=== PATIENT | female | born 1935 ===

== ENCOUNTER → 2017-05-14 | Outpatient (CLI) | payer MEDICARE ==
[~2017-05-14] MED LIST: AMIODARONE HCL100 MG; FURO40; LOSA25 PO; METO25; RANI150EL; SPIR50; WARF1
[2017-05-14 18:00] LABS: International Normalized Ratio 1.79; Prothrombin Time Results 18.9 Sec (9.7-11.5)
== END ==
LOC: LAB 17:33
PROVIDERS: Nurse Practitioner Adult Health
DX: I25.10 Atherosclerotic heart disease of native coronary artery without angina pectoris (principal)
CPT/HCPCS: 85610

== ENCOUNTER → 2017-06-11 | Outpatient (CLI) | payer MEDICARE ==
[2017-06-11 18:02] LABS: BASOPHILS ABSOLUTE AUTO 0.05 K/mm3 (0.00-0.23); BASOPHILS PERCENT AUTO 1 % (0-2); EOSINOPHILS ABSOLUTE AUTO 0.02 K/mm3 (0.00-0.68); EOSINOPHILS PERCENT AUTO 0 % (0-6); Hematocrit 39.7 % (33.0-51.0); Hemoglobin 12.3 g/dL (11.5-16.0); IMMATURE GRAN ABSOLUTE AUTO 0.02 K/mm3 (0.00-0.10); IMMATURE GRAN PERCENT AUTO 0 % (0-1); LYMPHOCYTES PERCENT AUTO 11 % (21-46); MONOCYTES PERCENT AUTO 8 % (4-13); Mean Corpuscular HGB 28.8 pg (26.0-34.0); Mean Corpuscular Volume 93 fL (80-100); Mean Platelet Volume 12.3 fL (9.1-12.4); NEUTROPHILS ABSOLUTE AUTO 5.34 K/mm3 (1.96-9.15); NEUTROPHILS PERCENT AUTO 81 % (41-73); Platelet Count 233 K/mm3 (150-400); RDW Coefficient Variation 17.4 % (11.7-14.2); RDW Standard Deviation 59.2 fL (35.1-46.3); Red Blood Cell Count 4.27 M/mm3 (3.80-5.20); White Blood Cell Count 6.63 K/mm3 (4.00-11.30)
[2017-06-11 18:17] LABS: International Normalized Ratio 3.13; Prothrombin Time Results 33.7 Sec (9.7-11.5)
[2017-06-11 18:44] LABS: Alanine Aminotransfer (ALT/SGP 33 U/L (12-78); Albumin, Blood 4.1 g/dL (3.4-5.0); Albumin/Globulin Ratio 0.9 (0.8-1.8); Alk Phos 95 U/L (50-136); Anion Gap 7 mmol/L (6-16); Aspartate Aminotrans (AST/SGOT 28 U/L (12-37); Bilirubin, Total 0.8 mg/dL (0.1-1.0); Blood Urea Nitrogen 36 mg/dL (8-24); Bun/Creatinine Ratio 17.8 (12.0-20.0); CHOL/HDL RATIO 4.5; CO2, Blood 30 mmol/L (21-32); Calcium, Blood 9.2 mg/dL (8.5-10.1); Chloride, Blood 102 mmol/L (98-108); Cholesterol 136 mg/dL (50-200); Creatinine, Blood 2.02 mg/dL (0.40-1.00); Free Thyroxine 1.37 ng/dL (0.70-1.60); Globulin, Blood 4.5 g/dL (2.2-4.0); Glomerular Filtration Rate 25 (60-); Glucose, Blood 125 mg/dL (70-99); HDL Cholesterol 30 mg/dL (>39); LDL/HDL RATIO 2.8; Low Density Lipoprotein Chol 85 mg/dL (0-110); Sodium, Blood 139 mmol/L (136-145); Total Protein, Blood 8.6 g/dL (6.4-8.2); Triglycerides 104 mg/dL (30-160); Very Low Density Lipoprot Chol 20 mg/dL (6-32)
== END | disposition home or self-care (01) ==
LOC: LAB SHORT 17:52 → LAB 17:52
PROVIDERS: Nurse Practitioner Adult Health
DX: E11.22 Type 2 diabetes mellitus with diabetic chronic kidney disease (principal); I12.9 Hypertensive chronic kidney disease with stage 1 through stage 4 chronic kidney disease, or unspecified chronic kidney disease; N18.9 Chronic kidney disease, unspecified; E78.5 Hyperlipidemia, unspecified; J45.909 Unspecified asthma, uncomplicated; K21.9 Gastro-esophageal reflux disease without esophagitis; I25.10 Atherosclerotic heart disease of native coronary artery without angina pectoris
CPT/HCPCS: 80053; 80061; 84439; 84443; 85025; 85610

== ENCOUNTER → 2017-07-11 | Outpatient (CLI) | payer MEDICARE ==
[2017-07-11 18:26] LABS: International Normalized Ratio 2.63; Prothrombin Time Results 28.2 Sec (9.7-11.5)
== END ==
LOC: LAB SHORT 14:30 → LAB 14:30
PROVIDERS: Nurse Practitioner Adult Health
DX: I25.10 Atherosclerotic heart disease of native coronary artery without angina pectoris (principal)
CPT/HCPCS: 85610

== ENCOUNTER 2017-07-17 05:03 | Emergency (ER) | payer MEDICARE ==
[~2017-07-17] VITALS: Ht 162.6 cm; Wt 61.7 kg
[2017-07-17] MEDS ORDERED: AMIODARONE HCL100 MG (05:29)
[2017-07-17] MEDS ORDERED: LOSA25 PO (05:29)
[2017-07-17] MEDS ORDERED: SPIR50 (05:30)
[2017-07-17] MEDS ORDERED: METO25 (05:30)
[2017-07-17] MEDS ORDERED: RANI150EL (05:30)
[2017-07-17] MEDS ORDERED: WARF1 (05:30)
[2017-07-17] MEDS ORDERED: FURO40 (05:30)
[2017-07-17 06:29] LABS: International Normalized Ratio 3.17; Prothrombin Time Results 34.2 Sec (9.7-11.5)
[2017-07-17 06:36] LABS: BASOPHILS ABSOLUTE AUTO 0.08 K/mm3 (0.00-0.23); BASOPHILS PERCENT AUTO 1 % (0-2); EOSINOPHILS ABSOLUTE AUTO 0.04 K/mm3 (0.00-0.68); EOSINOPHILS PERCENT AUTO 1 % (0-6); Hematocrit 39.7 % (33.0-51.0); Hemoglobin 12.3 g/dL (11.5-16.0); IMMATURE GRAN ABSOLUTE AUTO 0.03 K/mm3 (0.00-0.10); IMMATURE GRAN PERCENT AUTO 0 % (0-1); LYMPHOCYTES ABSOLUTE AUTO 1.02 K/mm3 (0.84-5.20); LYMPHOCYTES PERCENT AUTO 13 % (21-46); MONOCYTES ABSOLUTE AUTO 0.68 K/mm3 (0.16-1.47); MONOCYTES PERCENT AUTO 9 % (4-13); Mean Corpuscular HGB 28.3 pg (26.0-34.0); Mean Corpuscular Volume 92 fL (80-100); Mean Platelet Volume 11.6 fL (9.1-12.4); NEUTROPHILS PERCENT AUTO 77 % (41-73); Platelet Count 211 K/mm3 (150-400); RDW Coefficient Variation 17.2 % (11.7-14.2); RDW Standard Deviation 57.7 fL (35.1-46.3); Red Blood Cell Count 4.34 M/mm3 (3.80-5.20); White Blood Cell Count 7.95 K/mm3 (4.00-11.30)
== END 2017-07-17 07:24 | disposition home or self-care (01) ==
LOC: ER 05:03
PROVIDERS: Emergency Medicine
DX: R04.0 Epistaxis (principal); I25.10 Atherosclerotic heart disease of native coronary artery without angina pectoris; R79.1 Abnormal coagulation profile; Z79.899 Other long term (current) drug therapy; Z79.01 Long term (current) use of anticoagulants; I25.2 Old myocardial infarction; I48.91 Unspecified atrial fibrillation; Z87.891 Personal history of nicotine dependence
CPT/HCPCS: 30905; 36415; 85025; 85610; 99283

== ENCOUNTER → 2017-08-05 | Outpatient (CLI) | payer MEDICARE ==
[2017-08-06 14:10] LABS: Performing Lab VAMCL; Test Name PT
== END | disposition home or self-care (01) ==
LOC: LAB SHORT 17:26 → LAB 17:26
PROVIDERS: Nurse Practitioner Adult Health
DX: I25.10 Atherosclerotic heart disease of native coronary artery without angina pectoris (principal)
CPT/HCPCS: 85610

== ENCOUNTER → 2017-10-01 | Outpatient (CLI) | payer MEDICARE ==
[2017-10-01 18:12] LABS: International Normalized Ratio 3.79; Prothrombin Time Results 36.2 Sec (9.7-11.5)
== END ==
LOC: LAB SHORT 09:57 → LAB 09:57
PROVIDERS: Nurse Practitioner Adult Health
DX: I25.10 Atherosclerotic heart disease of native coronary artery without angina pectoris (principal)
CPT/HCPCS: 85610

== ENCOUNTER → 2017-10-17 | Outpatient (CLI) | payer MEDICARE ==
[2017-10-17 18:31] LABS: Prothrombin Time Results 46.4 Sec (9.7-11.5)
[2017-10-17 18:43] LABS: International Normalized Ratio 4.93
== END ==
LOC: LAB SHORT 17:42 → LAB 17:42
PROVIDERS: Nurse Practitioner Adult Health
DX: I25.10 Atherosclerotic heart disease of native coronary artery without angina pectoris (principal)
CPT/HCPCS: 85610

== ENCOUNTER → 2017-10-21 | Outpatient (CLI) | payer MEDICARE ==
[2017-10-21 18:01] LABS: International Normalized Ratio 2.08; Prothrombin Time Results 20.6 Sec (9.7-11.5)
== END ==
LOC: LAB 09:15 → LAB SHORT 09:15
PROVIDERS: Nurse Practitioner Adult Health
DX: I25.10 Atherosclerotic heart disease of native coronary artery without angina pectoris (principal)
CPT/HCPCS: 85610

== ENCOUNTER 2018-06-23 23:54 | Inpatient (IN) | payer MEDICARE ==
[~2018-06-23] VITALS: Ht 152.4 cm; Wt 66.4 kg
[~2018-06-23 23:54] MED LIST changes: -METO25; +METO25 PO; -RANI150EL; +RANI150EL PO; -SPIR50; +SPIR50 PO; -WARF1; +WARF1 PO
[2018-06-24 01:12] LABS: BASOPHILS ABSOLUTE AUTO 0.07 K/mm3 (0.00-0.23); BASOPHILS PERCENT AUTO 1 % (0-2); EOSINOPHILS ABSOLUTE AUTO 0.08 K/mm3 (0.00-0.68); EOSINOPHILS PERCENT AUTO 1 % (0-6); Hematocrit 45.2 % (33.0-51.0); Hemoglobin 14.3 g/dL (11.5-16.0); IMMATURE GRAN ABSOLUTE AUTO 0.07 K/mm3 (0.00-0.10); IMMATURE GRAN PERCENT AUTO 1 % (0-1); LYMPHOCYTES ABSOLUTE AUTO 0.86 K/mm3 (0.84-5.20); LYMPHOCYTES PERCENT AUTO 11 % (21-46); MONOCYTES ABSOLUTE AUTO 0.69 K/mm3 (0.16-1.47); MONOCYTES PERCENT AUTO 9 % (4-13); Mean Corpuscular HGB 29.7 pg (26.0-34.0); Mean Corpuscular HGB Conc 31.6 g/dL (31.5-36.5); Mean Corpuscular Volume 94 fL (80-100); Mean Platelet Volume 12.5 fL (9.1-12.4); NEUTROPHILS ABSOLUTE AUTO 6.05 K/mm3 (1.96-9.15); NEUTROPHILS PERCENT AUTO 77 % (41-73); Platelet Count 181 K/mm3 (150-400); RDW Coefficient Variation 15.5 % (11.7-14.2); RDW Standard Deviation 53.5 fL (35.1-46.3); Red Blood Cell Count 4.82 M/mm3 (3.80-5.20); White Blood Cell Count 7.82 K/mm3 (4.00-11.30)
[2018-06-24 01:24] LABS: Albumin, Blood 4.1 g/dL (3.4-5.0); Albumin/Globulin Ratio 0.9 (0.8-1.8); Bun/Creatinine Ratio 19.5 (12.0-20.0); Calcium, Blood 8.8 mg/dL (8.5-10.1); Creatinine, Blood 2.26 mg/dL (0.40-1.00); Globulin, Blood 4.4 g/dL (2.2-4.0); Potassium, Blood 4.9 mmol/L (3.5-5.5); Total Protein, Blood 8.5 g/dL (6.4-8.2)
[2018-06-24 02:07] LABS: International Normalized Ratio 1.77; Prothrombin Time Results 17.8 Sec (9.7-11.5)
[2018-06-24] MEDS ORDERED: CHOL10002 (03:04)
[2018-06-24] MEDS ORDERED: ACET325 PO (03:04)
--- NOTE | 2018-06-24 05:33 | NUR ---
PT NEW ADMIT THIS AM FOR RIGHT HIP FX. PT VSS SINCE ARRIVING TO FLOOR. HR APCED 60'S PER TELE MONITOR, 2LO2 NC [address] PER BASELINE. PT DECLINED NEED FOR PAIN MEDS, REPOSITIONED FOR COMFORT. PT NPO PER ORDERS. ORTHO CONSULT CALLED IN TO [facility]. CALL LIGHT IN REACH, WILL CONT TO MONITOR UNTIL REP GIVEN TO ONCOMING RN.
[2018-06-24 11:09] LABS: Hematocrit 43.2 % (33.0-51.0); Hemoglobin 13.5 g/dL (11.5-16.0); Mean Corpuscular HGB 29.7 pg (26.0-34.0); Mean Corpuscular HGB Conc 31.3 g/dL (31.5-36.5); Mean Corpuscular Volume 95 fL (80-100); Platelet Count 153 K/mm3 (150-400); RDW Coefficient Variation 15.8 % (11.7-14.2); RDW Standard Deviation 55.5 fL (35.1-46.3); Red Blood Cell Count 4.54 M/mm3 (3.80-5.20); White Blood Cell Count 8.82 K/mm3 (4.00-11.30)
[2018-06-24 11:39] LABS: Albumin, Blood 3.6 g/dL (3.4-5.0); Albumin/Globulin Ratio 0.9 (0.8-1.8); Bilirubin, Total 1.4 mg/dL (0.1-1.0); Bun/Creatinine Ratio 20.1 (12.0-20.0); Calcium, Blood 8.4 mg/dL (8.5-10.1); Creatinine, Blood 2.04 mg/dL (0.40-1.00); Globulin, Blood 3.8 g/dL (2.2-4.0); Potassium, Blood 4.8 mmol/L (3.5-5.5); Total Protein, Blood 7.4 g/dL (6.4-8.2)
[2018-06-24 11:42] LABS: International Normalized Ratio 1.76; Prothrombin Time Results 17.7 Sec (9.7-11.5)
--- NOTE | 2018-06-24 14:31 | NUR ---
1100- rcvd report from previous RN Marisol, pt resting in bed, bed in lowest position, call light within reach, denies need for pain medication 1145- dr escalona call with orders for this RN to request hospitalist speak to pt about surgical intervention, pt's wish to have surgery in [place] r/t cardiac camera control operator there. this RN called Joao 1230- Dr Polk returned call, requests this RN speak with family and have them contact receiving specialist to assist them to secure an accepting hospitalist/orethopedist in [place]. This RN spoke with family, clincal director Tami. 1300-spoke with Dr Escalona to update him. VIVI Valerio and Dr Escalona spoke with family, informed them of the process if family wishes to obtain transfer/accepting physician. family will contact pt's receiving specialist in [place]. this RN will recheck and monitor
--- NOTE | 2018-06-24 18:23 | NUR ---
1740- phoned update to dr davidson following phone conversation with office of Dr Garber in [place], pt's school services officer. dr Garber recommends the orthopedist here at [facility] [place] speak with the orthopedist in [place] to transfer if medically necessary. 1800- dr davidson came to speak with pt re: surgical interventions
--- NOTE | 2018-06-24 19:42 | NUR ---
shift summary: vss, no acute changes, heart remained paced at approx 60 bpm per catheterization laboratory technician on recheck. pt tolerated PO intake for lunch and dinner, nauseous no vomiting after dinner, medicated per apr. pt states pain controlled to her expectation and that she is able to rest following analgesia per mar. pt's family with pt t/o shift. Dr Polk rounded on pt and discussed surgical intervention and plan extensively with pt. see note. pt tolerated bed león for urine output of >350 ml this shift. fluids currently running and pt encouraged to take PO intake. no BM this shift. affect limb with rotated toes our positioned on pillow, repositions per pt's request
--- NOTE | 2018-06-24 21:26 | NUR ---
Agreed for care by executive director of nursing on 06/25/18
[2018-06-25 05:18] LABS: BASOPHILS ABSOLUTE AUTO 0.06 K/mm3 (0.00-0.23); BASOPHILS PERCENT AUTO 1 % (0-2); EOSINOPHILS ABSOLUTE AUTO 0.09 K/mm3 (0.00-0.68); EOSINOPHILS PERCENT AUTO 1 % (0-6); Hematocrit 43.3 % (33.0-51.0); Hemoglobin 13.5 g/dL (11.5-16.0); IMMATURE GRAN ABSOLUTE AUTO 0.05 K/mm3 (0.00-0.10); IMMATURE GRAN PERCENT AUTO 1 % (0-1); LYMPHOCYTES ABSOLUTE AUTO 0.94 K/mm3 (0.84-5.20); LYMPHOCYTES PERCENT AUTO 10 % (21-46); MONOCYTES ABSOLUTE AUTO 1.18 K/mm3 (0.16-1.47); MONOCYTES PERCENT AUTO 12 % (4-13); Mean Corpuscular HGB 29.9 pg (26.0-34.0); Mean Corpuscular HGB Conc 31.2 g/dL (31.5-36.5); Mean Corpuscular Volume 96 fL (80-100); NEUTROPHILS ABSOLUTE AUTO 7.49 K/mm3 (1.96-9.15); NEUTROPHILS PERCENT AUTO 76 % (41-73); Platelet Count 157 K/mm3 (150-400); RDW Coefficient Variation 15.6 % (11.7-14.2); RDW Standard Deviation 55.4 fL (35.1-46.3); Red Blood Cell Count 4.52 M/mm3 (3.80-5.20); White Blood Cell Count 9.81 K/mm3 (4.00-11.30)
[2018-06-25 05:32] LABS: International Normalized Ratio 2.05; Prothrombin Time Results 20.4 Sec (9.7-11.5)
[2018-06-25 05:40] LABS: Calcium, Blood 8.4 mg/dL (8.5-10.1); Creatinine, Blood 2.05 mg/dL (0.40-1.00); Potassium, Blood 4.7 mmol/L (3.5-5.5)
--- NOTE | 2018-06-25 06:27 | NUR ---
LYING ON HER RIGHT SIDE FACING THE DOOR WITH EYES CLOSED. DENIES FURTHER NEEDS OR WANTS AT THIS TIME. NO CHANGES SINCE START OF SHIFT. SAFETY MEASURES IN PLACE. WILL GIVE HAND OFF TO ONCOMING SHFIT USING SBAR.
--- NOTE | 2018-06-25 08:41 | NUR ---
DR ASCENCIO HERE, REPORTS TALKING WITH DR DENNEY THIS AM.
--- NOTE | 2018-06-25 12:40 | NUR ---
MEPILEX PLACED TO PT'S BOTTOM EARLIER TODAY WITH ASSIST FROM FEMALE ELECTRICIAN ELEVATOR MAINTENANCE.
--- NOTE | 2018-06-25 15:33 | NUR ---
CARDIOLOGY HERE TO SEE PT. FAMILY PRESENT.
--- NOTE | 2018-06-25 19:44 | NUR ---
SHIFT SUMMARY PT EATING AND DRINKING. PT TO BE NPO AFTER MIDNIGHT. PT BEEN REPOSITIONED MULT TIMES TODAY. PT FAMILY IN AND OUT OF ROOM. PT REPORTED EARLIER ABLE TO GIVE INFORMATION TO SON'S OVER PHONE, BARBARA OR GLENNA. PT BEEN SEEN BY EFM DR, CARDIOLOGY DR, RESPIRATORY DR AND ORTHO DR TODAY. PT GIVEN PO VIT K TODAY. PT VOIDING USING BEDPAN. PT PASSING GAS. PT HAS TELE IN PLACE. PT HAS MEPILEX IN PLACE TO BOTTOM.
[2018-06-26 05:14] LABS: BASOPHILS ABSOLUTE AUTO 0.05 K/mm3 (0.00-0.23); BASOPHILS PERCENT AUTO 1 % (0-2); EOSINOPHILS ABSOLUTE AUTO 0.23 K/mm3 (0.00-0.68); EOSINOPHILS PERCENT AUTO 3 % (0-6); Hematocrit 41.4 % (33.0-51.0); IMMATURE GRAN ABSOLUTE AUTO 0.03 K/mm3 (0.00-0.10); IMMATURE GRAN PERCENT AUTO 0 % (0-1); LYMPHOCYTES ABSOLUTE AUTO 0.72 K/mm3 (0.84-5.20); LYMPHOCYTES PERCENT AUTO 8 % (21-46); MONOCYTES ABSOLUTE AUTO 1.15 K/mm3 (0.16-1.47); MONOCYTES PERCENT AUTO 13 % (4-13); Mean Corpuscular HGB 29.8 pg (26.0-34.0); Mean Corpuscular HGB Conc 31.4 g/dL (31.5-36.5); Mean Corpuscular Volume 95 fL (80-100); Mean Platelet Volume 12.2 fL (9.1-12.4); NEUTROPHILS ABSOLUTE AUTO 6.89 K/mm3 (1.96-9.15); NEUTROPHILS PERCENT AUTO 76 % (41-73); Platelet Count 157 K/mm3 (150-400); RDW Coefficient Variation 15.4 % (11.7-14.2); Red Blood Cell Count 4.36 M/mm3 (3.80-5.20); White Blood Cell Count 9.07 K/mm3 (4.00-11.30)
[2018-06-26 05:27] LABS: International Normalized Ratio 1.85; Prothrombin Time Results 18.5 Sec (9.7-11.5)
--- NOTE | 2018-06-26 05:27 | NUR ---
SHIFT SUMMARY PT A&O X4 T/O SHIFT. RLE COOL, DRY AND PINK. RLE ELEVATED; PT REPOSITIONED TOLERATED. PT EDUCATION ON NEED TO REPOSITION ABOUT Q2 HRS TO PREVENT PRESSURE WOUNDS. PT DENIES N/T IN EXT. PAIN IN RLE MANAGED PER EMAR. PT ASSISTED WITH BEDPAN PRN. SIDE RAILS FOR SAFETY. CALL LIGHT IN REACH; PT DEMONSTRATES USE. 2L O2 VIA NC AT PER PT BASELINE. TELEMETRY IN PLACE; PACED AT 60 PER REGION MANAGER. WCTM UNTIL REPORT TO DAY SHIFT RN. NPO AFTER MIDNIGHT; ORAL SWABS AT BEDSIDE.
[2018-06-26 05:30] LABS: Bun/Creatinine Ratio 20.2 (12.0-20.0); Calcium, Blood 8.6 mg/dL (8.5-10.1); Creatinine, Blood 2.08 mg/dL (0.40-1.00)
--- NOTE | 2018-06-26 08:48 | NUR ---
DR ASCENCIO HERE TO SEE PT.
--- NOTE | 2018-06-26 10:15 | NUR ---
PT REPOSITIONED PER PT REQ. PT REPORTS MORE COMF. FAMILY PRESENT.
[2018-06-26 11:55] LABS: International Normalized Ratio 1.58; Prothrombin Time Results 16.1 Sec (9.7-11.5)
--- NOTE | 2018-06-26 13:49 | NUR ---
DR FIELDS HERE TO SEE PT. DISCUSSED PT'S LABS, STATUS. FAMILY PRESENT.
--- NOTE | 2018-06-26 16:55 | NUR ---
PT REPORTS "GAS BUILD UP", PT REQ TUMS. DR NOTIFIED. SEE ORDER.
--- NOTE | 2018-06-26 19:49 | NUR ---
SHIFT SUMMARY PT DID NOT HAVE PROCEDURE TODAY, INR CONT TO BE ELEVATED EVEN AFTER VIT K GIVEN EARLIER THIS AM. DR FIELDS IN THIS AFTERNOON TO SEE PT. FAMILY WAS PRESENT. PT EATING AND DRINKING, VOIDING. PT BEEN REPOSTIONED MULT TIMES, BLE ELEVATED WITH PILLOWS. NO SORES TO HEEL, MEPILEX IN PLACE TO BOTTOM. PT BEEN ASSISTED WITH ADL'S PRN AND MED FOR PAIN PRN WELL SHIFTED IN BED MULT TIMES TODAY PER PT REQ. FAMILY IN/OUT OF ROOM. PT USING CALL LIGHT APPR.
--- NOTE | 2018-06-27 04:21 | NUR ---
SHIFT SUMMARY: PT A&O X4, VS WNL. PT NPO FOR POSSIBLE SURGERY TODAY DEPENDING ON INR. USING BEDPAN PRN. URINE VERY CONCENTRATED. SECOND BAG OF FLUIDS INFUSING (2 TO BE GIVEN TOTAL). REPOSITIONED FREQ. PAIN MANAGED WITH 25 MCG OF FENT. PT C/O FEELING "BLOATED". GIVEN SCHED ZANTAC WITH MILD IMPROVEMENT W/ SX. PT VENTRICULAR PACED AT RATE OF 60 PER CASE OPERATOR.
[2018-06-27 04:41] LABS: BASOPHILS ABSOLUTE AUTO 0.04 K/mm3 (0.00-0.23); BASOPHILS PERCENT AUTO 0 % (0-2); EOSINOPHILS ABSOLUTE AUTO 0.13 K/mm3 (0.00-0.68); EOSINOPHILS PERCENT AUTO 1 % (0-6); Hematocrit 42.5 % (33.0-51.0); Hemoglobin 13.5 g/dL (11.5-16.0); IMMATURE GRAN ABSOLUTE AUTO 0.05 K/mm3 (0.00-0.10); IMMATURE GRAN PERCENT AUTO 1 % (0-1); LYMPHOCYTES ABSOLUTE AUTO 0.85 K/mm3 (0.84-5.20); LYMPHOCYTES PERCENT AUTO 9 % (21-46); MONOCYTES ABSOLUTE AUTO 1.12 K/mm3 (0.16-1.47); MONOCYTES PERCENT AUTO 11 % (4-13); Mean Corpuscular HGB 29.5 pg (26.0-34.0); Mean Corpuscular HGB Conc 31.8 g/dL (31.5-36.5); Mean Corpuscular Volume 93 fL (80-100); Mean Platelet Volume 11.9 fL (9.1-12.4); NEUTROPHILS ABSOLUTE AUTO 7.77 K/mm3 (1.96-9.15); NEUTROPHILS PERCENT AUTO 78 % (41-73); Platelet Count 171 K/mm3 (150-400); RDW Coefficient Variation 15.6 % (11.7-14.2); RDW Standard Deviation 52.8 fL (35.1-46.3); Red Blood Cell Count 4.57 M/mm3 (3.80-5.20); White Blood Cell Count 9.96 K/mm3 (4.00-11.30)
[2018-06-27 04:53] LABS: International Normalized Ratio 1.4; Prothrombin Time Results 14.4 Sec (9.7-11.5)
[2018-06-27 05:00] LABS: Calcium, Blood 8.9 mg/dL (8.5-10.1); Creatinine, Blood 2.08 mg/dL (0.40-1.00); Potassium, Blood 5.5 mmol/L (3.5-5.5)
[2018-06-27 11:49] LABS: International Normalized Ratio 1.36
--- NOTE | 2018-06-27 11:50 | NUR ---
PT LEFT ROOM TO GO TO [facility]/OR
--- NOTE | 2018-06-27 16:27 | NUR ---
ASSUMED CARE PT. ARRIVES FROM DAY SURGERY AT THIS TIME. PT. DROWSY HOWEVER OPENING EYES AND ATTEMPTING TO PULL AT BIPAP MASK. PT. AC 08/08, 50%. PT. VSS UPON ARRIVAL. SECOND DOSE OF TRANEXAMIC ACID INFUSING. PT. SHAKES HEAD NO TO PAIN. ICE PACK PLACED TO RIGHT HIP UPON ARRIVAL, PT. DRESSING TO RIGHT HIP C/D/I. SCDS IN PLACE. PT. HAS SEBASTIAN DRAINING TO GRAVITY. NADN. CALL LIGHT IN REACH
--- NOTE | 2018-06-27 17:46 | NUR ---
PT REACHING TO REMOVE BIPAP. PT. PLACED ON 3LNC AT THIS TIME. PT. ALERT AND ORIENTED. PT. DENIES PAIN AT THIS TIME. ORAL CARE DONE AND PT PROVIDED WITH ICE WATER AT BEDSIDE. PT VSS REMAIN STABLE. CALL LIGHT IN REACH.
--- NOTE | 2018-06-27 18:41 | NUR ---
SHIFT SUMMARY PT. ALERT AND ORIENTED. CURRENTLY ON NC AT 3L AT 98%. PT TOLERATING WATER AND ICE CHIPS WELL. PT. CONTINUES TO DENY PAIN AT THIS TIME.VSS REPORT TO ONCOMING RN
--- NOTE | 2018-06-27 19:53 | NUR ---
PM NOTE. ASSUMED CARE OF PT APROX 1900, PT IS A&Ox4 S/P HIP SURGERY. PT'S VS HAVE BEEN STABLE SHE IS CURRENTLY ON 1L NC AT 96%. HIP DRESSING IS C/D/I. PT DENIES ANY PAIN AT THIS TIME. SEBASTIAN IS INTACT DRAINING CLEAR YELLOW URINE. CALL LIGHT IN REACH, BED IS LOCKED AND LOW WILL CONTINUE TO MONITOR.
--- NOTE | 2018-06-27 21:30 | NUR ---
TRANSFER POD #0 PT TRANSFERED TO ROOM 214 FROM ICU 4. PT IS AWAKE, ALERT AND ORIENTED. VSS, RESP UNLABORED, O2 VIA NC @ 1.5 L. AUQUACEL DRSG TO RIGHT THIGH C/D/I, CIRC WNL. POLAR PACK, SCD'S & TEDS ARE IN PLACE. PT IS TOLERATING PO INTAKE. PT DENIES PAIN AT THIS TIME. FAMILY IS AT THE BEDSIDE. CALL LIGHT IN REACH.
[2018-06-28 04:21] LABS: International Normalized Ratio 1.42; Prothrombin Time Results 14.6 Sec (9.7-11.5)
[2018-06-28 08:20] LABS: BASOPHILS ABSOLUTE AUTO 0.01 K/mm3 (0.00-0.23); BASOPHILS PERCENT AUTO 0 % (0-2); EOSINOPHILS PERCENT AUTO 0 % (0-6); Hematocrit 39.6 % (33.0-51.0); Hemoglobin 12.2 g/dL (11.5-16.0); IMMATURE GRAN ABSOLUTE AUTO 0.05 K/mm3 (0.00-0.10); IMMATURE GRAN PERCENT AUTO 1 % (0-1); LYMPHOCYTES ABSOLUTE AUTO 0.25 K/mm3 (0.84-5.20); LYMPHOCYTES PERCENT AUTO 3 % (21-46); MONOCYTES ABSOLUTE AUTO 0.79 K/mm3 (0.16-1.47); MONOCYTES PERCENT AUTO 8 % (4-13); Mean Corpuscular HGB 29.2 pg (26.0-34.0); Mean Corpuscular HGB Conc 30.8 g/dL (31.5-36.5); Mean Corpuscular Volume 95 fL (80-100); Mean Platelet Volume 12.1 fL (9.1-12.4); NEUTROPHILS ABSOLUTE AUTO 9.02 K/mm3 (1.96-9.15); NEUTROPHILS PERCENT AUTO 89 % (41-73); Platelet Count 175 K/mm3 (150-400); RDW Coefficient Variation 15.4 % (11.7-14.2); RDW Standard Deviation 52.4 fL (35.1-46.3); Red Blood Cell Count 4.18 M/mm3 (3.80-5.20); White Blood Cell Count 10.12 K/mm3 (4.00-11.30)
[2018-06-28 08:40] LABS: Bun/Creatinine Ratio 26.9 (12.0-20.0); Calcium, Blood 8.5 mg/dL (8.5-10.1); Creatinine, Blood 2.12 mg/dL (0.40-1.00)
[2018-06-28 14:12] LABS: Bun/Creatinine Ratio 26.9 (12.0-20.0); Calcium, Blood 8.5 mg/dL (8.5-10.1); Creatinine, Blood 2.27 mg/dL (0.40-1.00); Potassium, Blood 6.2 mmol/L (3.5-5.5)
--- NOTE | 2018-06-28 14:48 | NUR ---
DISCHARGE PT AND SPOUSE PROVIDED WITH WRITTEN AND VERBAL DISCHARGE INSTRUCTIONS; THEY REPORTED UNDERSTANDING AFTER QUESTIONS WERE ANSWERED. PT REPORTED UNDERSTANDING HOW TO CARE FOR HER JERROD DRAIN. PT ESCORTED OUT BY JANET VARGAS IN W/C.
[2018-06-28 18:03] LABS: Bun/Creatinine Ratio 27.3 (12.0-20.0); Calcium, Blood 8.2 mg/dL (8.5-10.1); Creatinine, Blood 2.16 mg/dL (0.40-1.00); Potassium, Blood 5.4 mmol/L (3.5-5.5)
--- NOTE | 2018-06-28 19:32 | NUR ---
SHIFT SUMMARY PT HAS DENIED PAIN THIS SHIFT. SHE IS A 1 ASSIST WHEN OOB. VSS. REPORT GIVEN TO BIBIANA TRINIDAD.
[2018-06-29 04:31] LABS: BASOPHILS ABSOLUTE AUTO 0.01 K/mm3 (0.00-0.23); BASOPHILS PERCENT AUTO 0 % (0-2); EOSINOPHILS ABSOLUTE AUTO 0.02 K/mm3 (0.00-0.68); EOSINOPHILS PERCENT AUTO 0 % (0-6); Hematocrit 37.5 % (33.0-51.0); IMMATURE GRAN ABSOLUTE AUTO 0.05 K/mm3 (0.00-0.10); IMMATURE GRAN PERCENT AUTO 1 % (0-1); LYMPHOCYTES ABSOLUTE AUTO 0.55 K/mm3 (0.84-5.20); LYMPHOCYTES PERCENT AUTO 5 % (21-46); MONOCYTES ABSOLUTE AUTO 1.15 K/mm3 (0.16-1.47); MONOCYTES PERCENT AUTO 11 % (4-13); Mean Corpuscular HGB 29.6 pg (26.0-34.0); Mean Platelet Volume 11.2 fL (9.1-12.4); NEUTROPHILS ABSOLUTE AUTO 8.75 K/mm3 (1.96-9.15); NEUTROPHILS PERCENT AUTO 83 % (41-73); Platelet Count 185 K/mm3 (150-400); RDW Coefficient Variation 15.6 % (11.7-14.2); RDW Standard Deviation 51.4 fL (35.1-46.3); Red Blood Cell Count 4.06 M/mm3 (3.80-5.20); White Blood Cell Count 10.53 K/mm3 (4.00-11.30)
[2018-06-29 04:34] LABS: Hematocrit 37.4 % (33.0-51.0); Hemoglobin 11.9 g/dL (11.5-16.0)
[2018-06-29 04:37] LABS: Mean Corpuscular Volume 92 fL (80-100)
[2018-06-29 04:46] LABS: International Normalized Ratio 1.4; Prothrombin Time Results 14.4 Sec (9.7-11.5)
[2018-06-29 04:50] LABS: Albumin, Blood 3.2 g/dL (3.4-5.0); Anion Gap 9 mmol/L (6-16); Blood Urea Nitrogen 63 mg/dL (8-24); Bun/Creatinine Ratio 28.5 (12.0-20.0); CO2, Blood 25 mmol/L (21-32); Calcium, Blood 8.4 mg/dL (8.5-10.1); Chloride, Blood 101 mmol/L (98-108); Creatinine, Blood 2.21 mg/dL (0.40-1.00); Glomerular Filtration Rate 23 (60-); Glucose, Blood 149 mg/dL (70-99); Magnesium, Blood 2.4 mg/dL (1.6-2.4); Phosphorus, Blood 4.7 mg/dL (2.5-4.9); Potassium, Blood 4.9 mmol/L (3.5-5.5); Sodium, Blood 135 mmol/L (136-145)
--- NOTE | 2018-06-29 15:27 | NUR ---
BLADDER SCAN SHOWED 330ML IN THE BLADDER. PT ATTEMPTED TO VOID AND WAS UNABLE. SHE DECLINED A STRAIGHT CATH AND STATED SHE WOULD TELL STAFF WHEN SHE WANTS TO TRY TO VOID AGAIN.
--- NOTE | 2018-06-29 18:03 | NUR ---
SHIFT SUMMARY PAIN HAS BEEN MANAGED WITH NORCO THIS SHIFT. SHE IS A 2 PERSON ASSIST WITH GAIT BELT AND WALKER. PT HAS BEEN ABLE TO VOID SINCE CATHETER WAS REMOVED. VSS. WILL MONITOR UNTIL REPORT TO ONCOMING RN.
[2018-06-30 04:32] LABS: Hematocrit 38.5 % (33.0-51.0); Hemoglobin 11.9 g/dL (11.5-16.0)
[2018-06-30 04:45] LABS: International Normalized Ratio 1.35; Prothrombin Time Results 13.9 Sec (9.7-11.5)
[2018-06-30 04:52] LABS: Albumin, Blood 3.1 g/dL (3.4-5.0); Anion Gap 8 mmol/L (6-16); Blood Urea Nitrogen 65 mg/dL (8-24); Bun/Creatinine Ratio 29.8 (12.0-20.0); CO2, Blood 28 mmol/L (21-32); Calcium, Blood 8.5 mg/dL (8.5-10.1); Chloride, Blood 101 mmol/L (98-108); Creatinine, Blood 2.18 mg/dL (0.40-1.00); Glomerular Filtration Rate 23 (60-); Glucose, Blood 124 mg/dL (70-99); Magnesium, Blood 2.4 mg/dL (1.6-2.4); Phosphorus, Blood 4.3 mg/dL (2.5-4.9); Potassium, Blood 4.4 mmol/L (3.5-5.5); Sodium, Blood 137 mmol/L (136-145)
--- NOTE | 2018-06-30 06:17 | NUR ---
SHIFT SUMMARY PT IS POD 3 RIGHT HIP REPAIR. PT IS A 2 ASSIST UP TO CHAIR W/ FWW AND GB. SHE IS A&O, ABLE TO MAKE NEEDS KNOWN. TELE WAS PACED OVERNIGHT. 1L VIA NC, MAINTAINING SATS AT REST. PT HAS FOLLOWED HER FLUID RESTRICTION WELL. DR. SANCHEZ SAW HER THIS MORNING. PT MEDICATED WITH 1 NORCO THIS AM FOR HIP PAIN, OTHERWISE COMFORTABLE T/O THE NIGHT. PT IS A&O, ABLE TO MAKE NEEDS KNOWN. WILL CTM UNTIL PASS TO NEXT SHIFT.
--- NOTE | 2018-06-30 13:22 | NUR ---
06/30/18 1322 Nellie Hernández VERIFICATIONS: EDIT CHART.
--- NOTE | 2018-06-30 18:12 | NUR ---
SHIFT SUMMARY PT UP TO CHAIR TODAY. THERAPY IN TO SEE PT. PT AMBULATED WITH WALKER AND ASSISTANCE. PT TOLERATING FOOD AND FLUIDS, ALTHOUGH ON FLUID RESTRICTION. PT REPORTS PASSING GAS BUT NO BM YET. GAVE PT PRUNE JUICE / APPLE JUICE / BUTTER TO DRINK AT ABOUT 1730. DISCUSSED POSSIBILITY OF NEEDING A SUPPOSITORY WITH PT. FAMILY HAS BEEN TO SEE PT TODAY.
[2018-07-01 05:27] LABS: BASOPHILS ABSOLUTE AUTO 0.03 K/mm3 (0.00-0.23); BASOPHILS PERCENT AUTO 0 % (0-2); EOSINOPHILS ABSOLUTE AUTO 0.12 K/mm3 (0.00-0.68); EOSINOPHILS PERCENT AUTO 2 % (0-6); Hematocrit 37.5 % (33.0-51.0); Hemoglobin 11.8 g/dL (11.5-16.0); IMMATURE GRAN ABSOLUTE AUTO 0.01 K/mm3 (0.00-0.10); IMMATURE GRAN PERCENT AUTO 0 % (0-1); LYMPHOCYTES ABSOLUTE AUTO 0.65 K/mm3 (0.84-5.20); LYMPHOCYTES PERCENT AUTO 8 % (21-46); MONOCYTES ABSOLUTE AUTO 0.88 K/mm3 (0.16-1.47); MONOCYTES PERCENT AUTO 11 % (4-13); Mean Corpuscular HGB 29.4 pg (26.0-34.0); Mean Corpuscular HGB Conc 31.5 g/dL (31.5-36.5); Mean Corpuscular Volume 94 fL (80-100); Mean Platelet Volume 11.5 fL (9.1-12.4); NEUTROPHILS ABSOLUTE AUTO 6.23 K/mm3 (1.96-9.15); NEUTROPHILS PERCENT AUTO 79 % (41-73); Platelet Count 184 K/mm3 (150-400); RDW Coefficient Variation 15.8 % (11.7-14.2); RDW Standard Deviation 53.6 fL (35.1-46.3); Red Blood Cell Count 4.01 M/mm3 (3.80-5.20); White Blood Cell Count 7.92 K/mm3 (4.00-11.30)
[2018-07-01 05:43] LABS: International Normalized Ratio 1.36
[2018-07-01 06:04] LABS: Albumin, Blood 2.9 g/dL (3.4-5.0); Anion Gap 6 mmol/L (6-16); Blood Urea Nitrogen 64 mg/dL (8-24); Bun/Creatinine Ratio 35.8 (12.0-20.0); CO2, Blood 30 mmol/L (21-32); Calcium, Blood 8.1 mg/dL (8.5-10.1); Chloride, Blood 100 mmol/L (98-108); Creatinine, Blood 1.79 mg/dL (0.40-1.00); Glomerular Filtration Rate 29 (60-); Glucose, Blood 103 mg/dL (70-99); Magnesium, Blood 2.2 mg/dL (1.6-2.4); Phosphorus, Blood 3.7 mg/dL (2.5-4.9); Potassium, Blood 4.2 mmol/L (3.5-5.5); Sodium, Blood 136 mmol/L (136-145)
--- NOTE | 2018-07-01 08:55 | NUR ---
DISCUSSED WITH DR WIGGINS PT'S LABWORK. REPORTS TO GIVE FULL DOSE OF LASIX TODAY, REPORTS CONT WITH PT TO BE DISCHARGED TODAY TO SNF IN [place].
--- NOTE | 2018-07-01 13:49 | NUR ---
DISCHARGE: PT DISCHARGED WITH FAMILY GIVING PT RIDE TO SNF IN [place]. PT EATING AND DRINKING. PAIN CONTROLLED ON PO PAIN MEDICATION. PT DRESSING WAS CHANGED BEFORE PT LEFT FOR [place]. PT REPORTED TO HAVE XTRA LARGE BM LAST NIGHT. MOTOR ASSEMBLY SUPERVISOR ASSISTED WITH DISCHARGE. IV OUT WNL. PT BELONGINGS SENT WITH PT. POLAR PAC SENT WITH PT. REPORT CALLED TO JESS AT SNF IN [place].
== END 2018-07-01 13:32 | DRG 470 ==
LOC: ER 23:54 → SURS 06-24 00:03 → ICUE 06-27 15:17 → SURS 06-27 21:00
PROVIDERS: Emergency Medicine; Family Medicine; Internal Medicine Endocrinology, Diabetes & Metabolism; Internal Medicine Nephrology; Orthopaedic Surgery; ADMIT Internal Medicine
PROC: 0SRR0JZ Replacement of Right Hip Joint, Femoral Surface with Synthetic Substitute, Open Approach (ICD-10-PCS; principal; 2018-06-27 12:30)
DX: S72.011A Unspecified intracapsular fracture of right femur, initial encounter for closed fracture (principal); N18.4 Chronic kidney disease, stage 4 (severe); I13.0 Hypertensive heart and chronic kidney disease with heart failure and stage 1 through stage 4 chronic kidney disease, or unspecified chronic kidney disease; I50.30 Unspecified diastolic (congestive) heart failure; I42.9 Cardiomyopathy, unspecified; N17.9 Acute kidney failure, unspecified; E87.1 Hypo-osmolality and hyponatremia; W19.XXXA Unspecified fall, initial encounter; I25.2 Old myocardial infarction; I25.10 Atherosclerotic heart disease of native coronary artery without angina pectoris; Z95.5 Presence of coronary angioplasty implant and graft; E87.5 Hyperkalemia; Z99.81 Dependence on supplemental oxygen; I25.5 Ischemic cardiomyopathy; Z87.891 Personal history of nicotine dependence; E11.22 Type 2 diabetes mellitus with diabetic chronic kidney disease; I48.2 Chronic atrial fibrillation; Z79.01 Long term (current) use of anticoagulants; K21.9 Gastro-esophageal reflux disease without esophagitis; Z95.0 Presence of cardiac pacemaker; I27.22 Pulmonary hypertension due to left heart disease
CPT/HCPCS: 36415; 71045; 71046; 72170; 73502; 76770; 80048; 80053; 80069; 82533; 83735; 83880; 85014; 85018; 85025; 85027; 85610; 86850; 86900; 86901; 93005; 93010; 94640; 94760; 96374; 96375; 97110; 97116; 97162; 97165; 97530; 97535; 99285-25; A9270-GY; C1776; C8929; J0171; J1100; J1885; J1940; J2405; J2704; J2710; J2795; J3010; J3430; J7040; J7042; J7050; J7120; Q9957

== ENCOUNTER 2018-08-12 09:48 | Emergency (ER) | payer MEDICARE ==
[~2018-08-12] VITALS: Ht 162.6 cm; Wt 66.3 kg
[~2018-08-12 09:48] MED LIST changes: +ACET325 PO; +CHOL10002
[2018-08-12] MEDS ORDERED: METO50 PO (10:24)
[2018-08-12] MEDS ORDERED: WARF1 PO (10:45)
[2018-08-12] MEDS ORDERED: SPIR25 PO (10:45)
[2018-08-12] MEDS ORDERED: Zantac150 MG PO (10:46)
[2018-08-12] MEDS ORDERED: FURO40 PO (10:46)
[2018-08-12 10:57] LABS: BASOPHILS ABSOLUTE AUTO 0.05 K/mm3 (0.00-0.23); BASOPHILS PERCENT AUTO 1 % (0-2); EOSINOPHILS ABSOLUTE AUTO 0.02 K/mm3 (0.00-0.68); EOSINOPHILS PERCENT AUTO 0 % (0-6); Hematocrit 38.9 % (33.0-51.0); Hemoglobin 12.2 g/dL (11.5-16.0); IMMATURE GRAN ABSOLUTE AUTO 0.02 K/mm3 (0.00-0.10); IMMATURE GRAN PERCENT AUTO 0 % (0-1); LYMPHOCYTES ABSOLUTE AUTO 0.75 K/mm3 (0.84-5.20); LYMPHOCYTES PERCENT AUTO 10 % (21-46); MONOCYTES ABSOLUTE AUTO 0.81 K/mm3 (0.16-1.47); MONOCYTES PERCENT AUTO 10 % (4-13); Mean Corpuscular HGB 28.8 pg (26.0-34.0); Mean Corpuscular HGB Conc 31.4 g/dL (31.5-36.5); Mean Corpuscular Volume 92 fL (80-100); Mean Platelet Volume 11.4 fL (9.1-12.4); NEUTROPHILS ABSOLUTE AUTO 6.13 K/mm3 (1.96-9.15); NEUTROPHILS PERCENT AUTO 79 % (41-73); Platelet Count 223 K/mm3 (150-400); RDW Coefficient Variation 15.5 % (11.7-14.2); RDW Standard Deviation 52.2 fL (35.1-46.3); Red Blood Cell Count 4.24 M/mm3 (3.80-5.20); White Blood Cell Count 7.78 K/mm3 (4.00-11.30)
[2018-08-12 11:20] LABS: Albumin, Blood 3.7 g/dL (3.4-5.0); Albumin/Globulin Ratio 0.8 (0.8-1.8); Bilirubin, Total 1.1 mg/dL (0.1-1.0); Bun/Creatinine Ratio 21.7 (12.0-20.0); Calcium, Blood 8.7 mg/dL (8.5-10.1); Creatinine, Blood 2.12 mg/dL (0.40-1.00); Globulin, Blood 4.5 g/dL (2.2-4.0); Potassium, Blood 4.1 mmol/L (3.5-5.5); Total Protein, Blood 8.2 g/dL (6.4-8.2); Troponin I 0.038 ng/mL (0.000-0.040)
[2018-08-12] MEDS ORDERED: POTCHL20ER PO (11:59)
[2018-08-12] MEDS ORDERED: Lasix40 MG PO (14:16)
== END 2018-08-12 13:05 | disposition home or self-care (01) ==
LOC: ER 09:48
PROVIDERS: Emergency Medicine
DX: I50.9 Heart failure, unspecified (principal); I48.91 Unspecified atrial fibrillation; J45.909 Unspecified asthma, uncomplicated; I25.2 Old myocardial infarction; I25.10 Atherosclerotic heart disease of native coronary artery without angina pectoris; Z88.0 Allergy status to penicillin; Z87.891 Personal history of nicotine dependence; Z79.899 Other long term (current) drug therapy
CPT/HCPCS: 36415; 71045; 80053; 83880; 84484; 85025; 93005; 93010; 96374; 99285-25; J1940

== ENCOUNTER 2018-08-30 12:45 | Emergency (ER) | payer MEDICARE ==
[~2018-08-30] VITALS: Ht 162.6 cm; Wt 66.2 kg
[~2018-08-30 12:45] MED LIST changes: +FURO40 PO; +Lasix40 MG PO; +METO50 PO; +POTCHL20ER PO; +SPIR25 PO; +Zantac150 MG PO
[2018-08-30 13:29] LABS: BASOPHILS ABSOLUTE AUTO 0.06 K/mm3 (0.00-0.23); BASOPHILS PERCENT AUTO 1 % (0-2); EOSINOPHILS ABSOLUTE AUTO 0.02 K/mm3 (0.00-0.68); EOSINOPHILS PERCENT AUTO 0 % (0-6); Hematocrit 41.3 % (33.0-51.0); Hemoglobin 12.8 g/dL (11.5-16.0); IMMATURE GRAN ABSOLUTE AUTO 0.03 K/mm3 (0.00-0.10); IMMATURE GRAN PERCENT AUTO 1 % (0-1); LYMPHOCYTES ABSOLUTE AUTO 0.91 K/mm3 (0.84-5.20); LYMPHOCYTES PERCENT AUTO 14 % (21-46); MONOCYTES PERCENT AUTO 12 % (4-13); Mean Corpuscular HGB 28.1 pg (26.0-34.0); Mean Corpuscular Volume 91 fL (80-100); Mean Platelet Volume 11.4 fL (9.1-12.4); NEUTROPHILS PERCENT AUTO 73 % (41-73); Platelet Count 192 K/mm3 (150-400); RDW Coefficient Variation 15.8 % (11.7-14.2); RDW Standard Deviation 51.5 fL (35.1-46.3); Red Blood Cell Count 4.55 M/mm3 (3.80-5.20); White Blood Cell Count 6.62 K/mm3 (4.00-11.30)
[2018-08-30] MEDS ORDERED: Spironolactone25 MG PO (13:36)
[2018-08-30] MEDS ORDERED: Amiodarone HCl200 MG PO (13:37)
[2018-08-30 13:52] LABS: International Normalized Ratio 2.93; Prothrombin Time Results 28.2 Sec (9.7-11.5)
[2018-08-30] MEDS ORDERED: Toprol Xl25 MG PO (14:24)
[2018-08-30 14:27] LABS: Albumin, Blood 3.8 g/dL (3.4-5.0); Albumin/Globulin Ratio 0.9 (0.8-1.8); Bilirubin, Total 1.1 mg/dL (0.1-1.0); Bun/Creatinine Ratio 27.4 (12.0-20.0); Calcium, Blood 8.6 mg/dL (8.5-10.1); Creatinine, Blood 2.34 mg/dL (0.40-1.00); Globulin, Blood 4.4 g/dL (2.2-4.0); Potassium, Blood 3.7 mmol/L (3.5-5.5); Total Protein, Blood 8.2 g/dL (6.4-8.2)
== END 2018-08-30 14:50 | disposition home or self-care (01) ==
LOC: ER 12:45
PROVIDERS: Emergency Medicine; Physician Assistant
DX: I50.9 Heart failure, unspecified (principal); I25.2 Old myocardial infarction; Z95.1 Presence of aortocoronary bypass graft; Z87.891 Personal history of nicotine dependence; Z88.0 Allergy status to penicillin
CPT/HCPCS: 36415; 71046; 80053; 83880; 84484; 85025; 85610; 93005; 93010; 96374; 99284-25; J1940

== ENCOUNTER 2018-12-01 14:03 | Emergency (ER) | payer MEDICARE ==
[~2018-12-01] VITALS: Ht 162.6 cm; Wt 5.9 kg
[~2018-12-01 14:03] MED LIST changes: +Amiodarone HCl200 MG PO; +Spironolactone25 MG PO; +Toprol Xl25 MG PO
[2018-12-01 15:08] LABS: BASOPHILS ABSOLUTE AUTO 0.04 K/mm3 (0.00-0.23); BASOPHILS PERCENT AUTO 1 % (0-2); EOSINOPHILS ABSOLUTE AUTO 0.02 K/mm3 (0.00-0.68); EOSINOPHILS PERCENT AUTO 0 % (0-6); Hematocrit 41.2 % (33.0-51.0); Hemoglobin 12.6 g/dL (11.5-16.0); IMMATURE GRAN ABSOLUTE AUTO 0.01 K/mm3 (0.00-0.10); IMMATURE GRAN PERCENT AUTO 0 % (0-1); LYMPHOCYTES ABSOLUTE AUTO 0.74 K/mm3 (0.84-5.20); LYMPHOCYTES PERCENT AUTO 11 % (21-46); MONOCYTES ABSOLUTE AUTO 0.74 K/mm3 (0.16-1.47); MONOCYTES PERCENT AUTO 11 % (4-13); Mean Corpuscular HGB 27.4 pg (26.0-34.0); Mean Corpuscular HGB Conc 30.6 g/dL (31.5-36.5); Mean Corpuscular Volume 90 fL (80-100); Mean Platelet Volume 11.5 fL (9.1-12.4); NEUTROPHILS ABSOLUTE AUTO 5.27 K/mm3 (1.96-9.15); NEUTROPHILS PERCENT AUTO 77 % (41-73); Platelet Count 194 K/mm3 (150-400); RDW Coefficient Variation 18.6 % (11.7-14.2); RDW Standard Deviation 59.9 fL (35.1-46.3); White Blood Cell Count 6.82 K/mm3 (4.00-11.30)
[2018-12-01 15:16] LABS: Albumin, Blood 3.7 g/dL (3.4-5.0); Albumin/Globulin Ratio 0.9 (0.8-1.8); Bilirubin, Total 1.1 mg/dL (0.1-1.0); Bun/Creatinine Ratio 24.1 (12.0-20.0); Calcium, Blood 9.1 mg/dL (8.5-10.1); Creatinine, Blood 2.78 mg/dL (0.40-1.00); Globulin, Blood 4.2 g/dL (2.2-4.0); Potassium, Blood 4.6 mmol/L (3.5-5.5); Total Protein, Blood 7.9 g/dL (6.4-8.2)
== END 2018-12-01 18:07 | disposition left against medical advice (07) ==
LOC: ER 14:03
PROVIDERS: Physician Assistant
DX: R19.5 Other fecal abnormalities (principal); R10.9 Unspecified abdominal pain
CPT/HCPCS: 36415; 80053; 85025; 86850; 86900; 86901; 99283

== ENCOUNTER 2019-03-09 10:39 | Inpatient (IN) | payer MEDICARE ==
[~2019-03-09] VITALS: Ht 165.1 cm; Wt 68.5 kg
[2019-03-09 11:26] LABS: BASOPHILS ABSOLUTE AUTO 0.02 K/mm3 (0.00-0.23); BASOPHILS PERCENT AUTO 0 % (0-2); EOSINOPHILS PERCENT AUTO 0 % (0-6); Hemoglobin 12.9 g/dL (11.5-16.0); IMMATURE GRAN ABSOLUTE AUTO 0.06 K/mm3 (0.00-0.10); IMMATURE GRAN PERCENT AUTO 1 % (0-1); LYMPHOCYTES ABSOLUTE AUTO 0.69 K/mm3 (0.84-5.20); LYMPHOCYTES PERCENT AUTO 5 % (21-46); MONOCYTES ABSOLUTE AUTO 0.91 K/mm3 (0.16-1.47); MONOCYTES PERCENT AUTO 7 % (4-13); Mean Corpuscular HGB 28.8 pg (26.0-34.0); Mean Corpuscular HGB Conc 31.5 g/dL (31.5-36.5); Mean Corpuscular Volume 92 fL (80-100); Mean Platelet Volume 11.4 fL (9.1-12.4); NEUTROPHILS ABSOLUTE AUTO 11.16 K/mm3 (1.96-9.15); NEUTROPHILS PERCENT AUTO 87 % (41-73); Platelet Count 148 K/mm3 (150-400); RDW Coefficient Variation 19.1 % (11.7-14.2); RDW Standard Deviation 63.2 fL (35.1-46.3); Red Blood Cell Count 4.48 M/mm3 (3.80-5.20); White Blood Cell Count 12.84 K/mm3 (4.00-11.30)
[2019-03-09 11:37] LABS: International Normalized Ratio 2.23; Prothrombin Time Results 22.8 Sec (9.7-11.5)
[2019-03-09 12:04] LABS: Albumin, Blood 3.2 g/dL (3.4-5.0); Albumin/Globulin Ratio 0.7 (0.8-1.8); Bilirubin, Total 1.7 mg/dL (0.1-1.0); Bun/Creatinine Ratio 19.6 (12.0-20.0); Calcium, Blood 8.8 mg/dL (8.5-10.1); Creatinine, Blood 3.27 mg/dL (0.40-1.00); Globulin, Blood 4.9 g/dL (2.2-4.0); Potassium, Blood 4.9 mmol/L (3.5-5.5); Total Protein, Blood 8.1 g/dL (6.4-8.2)
[2019-03-09 12:05] LABS: Troponin I 0.053 ng/mL (0.000-0.040)
[2019-03-09] MEDS ORDERED: WARF1 PO (14:53)
[2019-03-09] MEDS ORDERED: FURO40 PO (14:54)
[2019-03-09] MEDS ORDERED: Vitamin D2000 UNIT PO (16:47)
[2019-03-09] MEDS ORDERED: PRENATAL TABLE1 EAC2 PO (16:47)
--- NOTE | 2019-03-09 17:53 | NUR ---
BLADDER SCANNED PATIENT FOR >950, CATHETER FROM ED REPLACED BECAUSE IT WASN'T DRAINING. NEW 14F SEBASTIAN CATHETER PLACED WITH ONLY DROPS OF U/O. BLADDER SCAN MAY BE INCORRECT DUE TO ASCITES, WILL DISCUSS CONCERNS WHEN DOCTOR ROUNDS ON PATIENT THIS EVENING.
--- NOTE | 2019-03-10 04:41 | NUR ---
GUEST SERVICES MANAGER SUMMARY PT AAOX4 AND PLEASANT. ABD VERY DISTENDED AND FIRM FROM ASCITES. DR SANCHEZ IN TO SEE PT EARLY IN SHIFT, GAVE ORDERS TO START IV BUMEX TONIGHT. 2 MG IV BUMEX GIVEN AT HS. SEBASTIAN CATH IN PLACE. MINIMAL URINE DRAINAGE THROUGH THE NIGHT, APPROXIMATELY 150 ML. TREATED FOR ABD PAIN X1 WITH ULTRAM WITH GOOD PAIN RELIEF. PT HAD ONE EPISODE OF DRY HEAVING, GIVEN ZOFRAN WITH GOOD RELIEF. PT HAS BEEN ABLE TO REST THROUGH MOST OF THE NIGHT. VSS, WILL CONTINUE TO MONITOR.
[2019-03-10 05:04] LABS: BASOPHILS ABSOLUTE AUTO 0.02 K/mm3 (0.00-0.23); BASOPHILS PERCENT AUTO 0 % (0-2); EOSINOPHILS PERCENT AUTO 0 % (0-6); Hematocrit 42.7 % (33.0-51.0); Hemoglobin 13.2 g/dL (11.5-16.0); IMMATURE GRAN ABSOLUTE AUTO 0.06 K/mm3 (0.00-0.10); IMMATURE GRAN PERCENT AUTO 0 % (0-1); LYMPHOCYTES ABSOLUTE AUTO 0.44 K/mm3 (0.84-5.20); LYMPHOCYTES PERCENT AUTO 3 % (21-46); MONOCYTES ABSOLUTE AUTO 0.88 K/mm3 (0.16-1.47); MONOCYTES PERCENT AUTO 6 % (4-13); Mean Corpuscular HGB 28.4 pg (26.0-34.0); Mean Corpuscular HGB Conc 30.9 g/dL (31.5-36.5); Mean Corpuscular Volume 92 fL (80-100); Mean Platelet Volume 11.7 fL (9.1-12.4); NEUTROPHILS ABSOLUTE AUTO 13.18 K/mm3 (1.96-9.15); NEUTROPHILS PERCENT AUTO 91 % (41-73); Platelet Count 201 K/mm3 (150-400); RDW Coefficient Variation 19.4 % (11.7-14.2); RDW Standard Deviation 64.2 fL (35.1-46.3); Red Blood Cell Count 4.64 M/mm3 (3.80-5.20); White Blood Cell Count 14.58 K/mm3 (4.00-11.30)
[2019-03-10 05:18] LABS: International Normalized Ratio 2.52; Prothrombin Time Results 25.6 Sec (9.7-11.5)
[2019-03-10 05:44] LABS: Albumin, Blood 3.1 g/dL (3.4-5.0); Albumin/Globulin Ratio 0.6 (0.8-1.8); Bilirubin, Total 2.1 mg/dL (0.1-1.0); Bun/Creatinine Ratio 20.2 (12.0-20.0); Calcium, Blood 9.5 mg/dL (8.5-10.1); Creatinine, Blood 3.66 mg/dL (0.40-1.00); Globulin, Blood 4.8 g/dL (2.2-4.0); Magnesium, Blood 2.5 mg/dL (1.6-2.4); Phosphorus, Blood 3.8 mg/dL (2.5-4.9); Potassium, Blood 5.2 mmol/L (3.5-5.5); Total Protein, Blood 7.9 g/dL (6.4-8.2)
--- NOTE | 2019-03-10 15:17 | NUR ---
Patient gave permission to give care on 03/10/19 at 1430.
--- NOTE | 2019-03-10 17:28 | NUR ---
PT gave permission to provide care for 03/11/2019, at 1715 03/10/2019.
--- NOTE | 2019-03-10 19:30 | NUR ---
Shift Summary A/Ox 4. Pleasant and cooperative, calls appropriately for needs. Pt requires 2 person to reposition Q2H. Pt on 2 LPM O2 via NC. Edematous throughout with distended abdomen that is tender to touch. Patient had no appetite. Medicated for abdominal pain of 10/10 after repositioning, down to 5/10. Medicated for nausea/vomiting of greenish bile x 1. Patient has intermittent productive cough with greenish phlegm preceding the vomiting episode. Pt worked with PT today. Total shift urine output was 15cc. No other concerns.
--- NOTE | 2019-03-10 19:30 | NUR ---
PATIENT AWAKE TALKING WITH SON IN LAW AND PALLATIVE CARE NURSE. CALL LIGHT IS IN REACH. NO NEEDS NOTED, WILL COME BACK WHEN PLLATIVE CARE NURSE IS COMPLETED HER ASSESSMENT.
--- NOTE | 2019-03-10 21:06 | NUR ---
TRANSFER FROM 326 TO ICU 16 ACCOMPANIED BY NURSING CARBURIZING FURNACE OPERATOR . TRANSFER TO [place] USING SLIDER SHEET. PT UNRESPONSIVE TO VERBAL OR TACTILE STIMULI GAZE FIXED. MONITOR PLACED SHOWING PACER SPIKES WITH OCC CAPTURE. AGONAL RESPIRATIONS NOTED NO PULSE NOTED CPR STARTED CODE CALLED AND CPR INITATED. AT 2114. SEE CODE RECORD FOR FURTHER NOTES. FAMILY AT BEDSIDE.
[2019-03-10 21:24] LABS: Bun/Creatinine Ratio 18.6 (12.0-20.0); Calcium, Blood 9.9 mg/dL (8.5-10.1); Creatinine, Blood 4.15 mg/dL (0.40-1.00); Potassium, Blood 5.9 mmol/L (3.5-5.5)
--- NOTE | 2019-03-10 21:30 | NUR ---
AT 1954 RECEIVED CALL FROM REJI JARRETT RN AT TELEMETRY MONITORS ASKING FOR PATIENT TO BE ASSESSED DUE TO QRS CHANGES AND ST ELEVATION AND DEPRESSION. 1999 ARRIVED TO THE ROOM TO FIND THE PATIENT SITTING UP RIGHT, RESPIRATIONS SLIGHTLY LABORED, APPEARED TO BE IN MILD DISTRESS. JESS MEEKS (FOUZIA) AT BEDSIDE WITH PALLATIVE NURSE TALKING. INFORMED THEM THAT JUST WANTED TO ASSESS THE PATIENT THERE HAS BEEN CHANGES ON HER HEART MONITOR. HR VERY IRREGULAR SHE DENIED CHEST PAIN, STATES IT ONLY HURTS WHEN SHE COUGHS. SON REPORTED SHE JUST HAD A SEVERE COUGHING SPELL RIGHT BEFORE I WALKED INTO ROOM. LUNG SOUNDS CRACKLES AND WHEEZES. GENERALIZED EDEMA NOTED, URINE OUTPUT SLIM. DENIED PALPITATIONS OR ANY OTHER CHEST DISCOMFORT OR CHANGES. WALKING OUT OF ROOM TO CALL CHARGE NURSE, THE CHARGE NURSE IVETH RN CALLED CHECKING ON PATIENT. INFORMED OF SITUATION, AND AGREED MD TO BE CALLED. 2009 PLACED CALL TO CRISTO SANTANA, INFORMED HER OF THE SITUATION AND ASSESSMENT. WHILE ON THE PHONE WITH CRISTO, I CALLED REJI JARRETT BACK TO SEE IF THE PATINET WENT BACK TO BEING PACED. HE STATED THAT IT APPEARED HER PACE MAKER WAS FAILING TO FIRE, OR IT IS NOT BEING CAPTURED ON THE MONITOR. THAT SHE IS HAVING MORE ST ELEVATION AND DEPRESSION. CRISTO HEARD THE REPORT. SHE SAID SHE WILL GO BY PCU TO CHECK THE MONITOR AND BE UP TO SEE THAT PATIENT. INFORMED THE CHARGE NURSES. 2014 ALEX ADHIKARI RN AT ROOM WITH EKG MACHINE, EKG SHOWED ABNORMAL. VITALS SHOWED DECREASE IN SATURATIONS TO 88-89% ON THE 2 LITERS. INCREASED HER OXYGEN TO 5 LITERS, SATS CAME UP TO 94%. 2027 CRISTO STUDENT MINISTRIES DIRECTOR ARRIVED, NOW AT PATIENT BED SIDE. PATIENT REPORTS ONLY FEELING PAIN WHEN SHE COUGHS, BUT IS NAUSEATED. 2030 ZOFRAN GIVEN FOR NAUSEA. CRISTO CHECKING PATIENT CHART. [address] SANCHEZ OF SITUATION. CRISTO ORDERED EXTERNAL DEFIBULATOR TO BE PLACED ON THE PATIENT AND INFORMED THAT SHE WILL BE MOVING TO ICU. CALLED CHARGE NURSE IVETH TRINIDAD AND CARIAS FOURNIER RN TO INFORM OF PLAN. GRABBED CRASH CART. [address] EXTERNAL DEFIBULATOR PADS. REJI JARRETT CALLED, INFORMED PATIENT TELE REMOVED TEMP. PLACED IN DIFFERENT POSITION ON PATIENT AROUND THE PADS. SHE WAS HOOKED UP TO MONITOR AT THIS TIME. [address] SANCHEZ ON PHONE, ASKED FOR CHARGE NURSE TO TAKE CALL. PASSED TO ALEX TRINIDAD. YESENIA TRINIDAD NURSE COORDINATOR ARRIVED TO ROOM TO ASSIST WITH EXTERNAL DEFIBULATOR. 2053 PATIENT STARTS TO REPORT CHEST PAIN AND DISCOMFORT. PATIENT PALE AND WORKING TO BREATH. VITALS TAKEN DROP IN BP TO 98/54 PULSE DROPPING TO 53, SATS AT 93%, RESP 21. REJI CALLED TO REPORT DROP IN PULSE. XRAY ALSO TO ROOM AND LAB. 2057 VITALS REPEAT DROP IN PULSE TO 40 BUT DEFIBULATOR SHOWS 60-70, SATS 88% PATIENT WITH HEAD TILTED BACK AND TO SIDE STARTED TO HAVE TEARS IN HER EYES SAID IT HURTS. SON IS OUT SIDE OF THE ROOM, HAD ALREADY CALLED DAUGHTER AND INFORMED HER OF THE SITUATION. AWAITING FOR ICU ROOM TO OPEN UP FOR TRANSFER. 2105 VITALS BP 74/47, 58 PULSE. ATTEMPTED TO DOUBLE CHECK WITH MANUAL UNABLE TO HEAR. YESENIA TRINIDAD VERIFIED BY PALPITATION THAT BP WAS IN THE 70'S. 2109 PATIENT TRANSFERRED TO ICU 16 WHILE ON EXTERNAL DEFIBULATOR PACING IN THE 30-50'S. PATIENT JUST LAYING BACK IN THE BED, NOT TALKING WORKING TO BREATH. ARRIVED TO ICU ESTIMATED 2112, TRANSFERRED TO BED, STARTED TO GIVE REPORT TO RN WHEN THE PATIENT STARTED TO CODE. ICU TOOK OVER AT THAT TIME. ON 5L RESP 22, UNABLE TO GET BLOOD PRESSURE. PATIENT
[2019-03-11 07:08] LABS: HBSAG SCREEN Negative (Negative); HEP A AB, IGM Negative (Negative); HEP B CORE AB, IGM Negative (Negative); HEP C VIRUS AB <0.1 (0.0-0.9)
== END 2019-03-11 04:15 | DRG 682 ==
LOC: ER 10:39 → MEDS 14:49 → ICUW 03-10 21:20 → SURS 03-11 00:06
PROVIDERS: Emergency Medicine; Internal Medicine Nephrology; Nurse Practitioner Acute Care; ADMIT Internal Medicine
PROC: 0BH17EZ Insertion of Endotracheal Airway into Trachea, Via Natural or Artificial Opening (ICD-10-PCS; principal; 2019-03-10)
PROC: 5A1935Z Respiratory Ventilation, Less than 24 Consecutive Hours (ICD-10-PCS; 2019-03-10)
DX: N17.8 Other acute kidney failure (principal); I50.43 Acute on chronic combined systolic (congestive) and diastolic (congestive) heart failure; R18.8 Other ascites; I48.20 Chronic atrial fibrillation, unspecified; J96.11 Chronic respiratory failure with hypoxia; N25.81 Secondary hyperparathyroidism of renal origin; Z79.01 Long term (current) use of anticoagulants; I25.10 Atherosclerotic heart disease of native coronary artery without angina pectoris; Z95.1 Presence of aortocoronary bypass graft; E87.5 Hyperkalemia; Z95.0 Presence of cardiac pacemaker; Z96.641 Presence of right artificial hip joint; I25.5 Ischemic cardiomyopathy; Z99.81 Dependence on supplemental oxygen; Z87.891 Personal history of nicotine dependence; J45.909 Unspecified asthma, uncomplicated; E88.09 Other disorders of plasma-protein metabolism, not elsewhere classified; I08.1 Rheumatic disorders of both mitral and tricuspid valves; I27.20 Pulmonary hypertension, unspecified; I46.9 Cardiac arrest, cause unspecified; R34 Anuria and oliguria; N18.9 Chronic kidney disease, unspecified
CPT/HCPCS: 31500; 31720; 36415; 51702; 51798; 71045; 74176; 80048; 80053; 80074; 83735; 83880; 84100; 84484; 85025; 85610; 85730; 92950; 93005; 93010; 93306; 96374-59; 96375-59; 97110; 97162; 97530; 99285-25; J0171; J0461; J2270; J2405